=== PATIENT | female | born 1995 | race African-American/Black ===

== ENCOUNTER → 2024-05-02 | Outpatient (CLI) | payer OTHER ==
[2024-05-02 15:43] LABS: HEMATOCRIT 33.6 % (36.0-47.0); HEMOGLOBIN 10.7 g/dl (12.0-15.5); MEAN CORPUSCULAR HEMOGLOBIN 29.7 pg (27.0-33.0); MEAN CORPUSCULAR HGB CONC 31.8 g/dl (32.0-36.5); MEAN CORPUSCULAR VOLUME 93.3 fl (80.0-96.0); PLATELET COUNT, AUTOMATED 285 10^3/uL (150-450); WHITE BLOOD COUNT 8.5 10^3/uL (4.0-10.0)
[2024-05-02 16:00] LABS: GLUCOSE CHALLENGE TEST 1 HOUR 120 MG/DL (LESS THAN 140)
[2024-05-02 16:36] LABS: HIV 1&2 SCREEN NEGATIVE (NEGATIVE)
[2024-05-02 17:24] LABS: GC DNA AMPLIFICATION NEGATIVE (NEGATIVE)
[2024-05-02 17:39] LABS: HEPATITIS C VIRUS ABY INDEX 0.02 INDEX (<0.8)
== END ==
LOC: M PLALAB 12:01
PROVIDERS: ATTEND Nurse Practitioner Family
DX: Z34.03 Encounter for supervision of normal first pregnancy, third trimester (principal)

== ENCOUNTER → 2024-07-06 | Outpatient (REF) | payer OTHER | LOC: M SFHCWAGY 16:50 | PROVIDERS: ATTEND Nurse Practitioner Family | DX: Z34.03 Encounter for supervision of normal first pregnancy, third trimester (principal); Z3A.37 37 weeks gestation of pregnancy; Z88.0 Allergy status to penicillin; Z88.1 Allergy status to other antibiotic agents ==

== ENCOUNTER → 2024-07-06 | Outpatient (REF) | payer OTHER | LOC: M PLALAB 14:50 | PROVIDERS: ATTEND Nurse Practitioner Family | DX: Z53.9 Procedure and treatment not carried out, unspecified reason (principal); Z34.03 Encounter for supervision of normal first pregnancy, third trimester; Z3A.37 37 weeks gestation of pregnancy; Z88.0 Allergy status to penicillin; Z88.1 Allergy status to other antibiotic agents ==

== ENCOUNTER 2024-07-28 19:48 | Outpatient (CLI) | payer OTHER ==
[~2024-07-28] VITALS: Ht 182.9 cm; Wt 110.7 kg
[2024-07-28 21:03] VITALS: BP 117/72
[2024-07-28 22:21] VITALS: BP 100/56
[2024-07-29] MEDS ORDERED: ACET-907 PO ×2 (14:50)
== END 2024-07-28 23:38 | disposition home or self-care (01) ==
LOC: M LDO 19:48
PROVIDERS: ATTEND Obstetrics & Gynecology
DX: O47.1 False labor at or after 37 completed weeks of gestation (principal); O98.513 Other viral diseases complicating pregnancy, third trimester; O99.820 Streptococcus B carrier state complicating pregnancy; U07.1 COVID-19; B95.1 Streptococcus, group B, as the cause of diseases classified elsewhere; Z3A.40 40 weeks gestation of pregnancy
CPT/HCPCS: 59025; G0463

== ENCOUNTER 2024-07-29 14:25 | Inpatient (IN) | payer OTHER ==
[~2024-07-29] VITALS: Ht 182.9 cm; Wt 110.0 kg
[2024-07-29] VITALS (19 sets, daily range): BP systolic 95–135; BP diastolic 47–83
[2024-07-29] MEDS ORDERED: HOME MED LIST COMPLETE! XX SCH (14:50)
[2024-07-29] MEDS ORDERED: ACET-907 PO ×2 (14:50)
[2024-07-29] MEDS ORDERED: NALOXONE INJ 0.4MG/1ML VIAL IV PRN (15:30)
[2024-07-29] MEDS ORDERED: ONDANSETRON 4MG 2ML VIAL IV PRN (15:30)
[2024-07-29] MEDS ORDERED: diphenhydrAMINE 50MG/ML VIAL IV PRN (15:30)
[2024-07-29] MEDS ORDERED: EPIDURAL/PCA KEYS XX PRN (15:30)
[2024-07-29] MEDS: LR 500 ML IV PRN (16:04)
[2024-07-29] MEDS ORDERED: CARBOPROST TROMETHAMINE 250 MCG/ML AMP IM PRN (16:10)
[2024-07-29] MEDS ORDERED: LR 1,000 ML IV SCH (16:10)
[2024-07-29] MEDS ORDERED: METHYLERGONOVINE MALEATE 0.2MG/ML 1ML VIAL IM PRN (16:10)
[2024-07-29] MEDS ORDERED: LIDOCAINE 1% MDV 20ML VIAL INFIL PRN (16:10)
[2024-07-29] MEDS ORDERED: TRANEXAMIC ACID INJection 1,000 MG in NS 100 ML IV PRN (16:10)
[2024-07-29 16:12] LABS: HEMATOCRIT 35.5 % (36.0-47.0); HEMOGLOBIN 11.3 g/dl (12.0-15.5); MEAN CORPUSCULAR HGB CONC 31.8 g/dl (32.0-36.5); MEAN CORPUSCULAR VOLUME 87.9 fl (80.0-96.0); PLATELET COUNT, AUTOMATED 323 10^3/uL (150-450); RED BLOOD COUNT 4.04 10^6/uL (4.00-5.40)
[2024-07-29] MEDS: VANCOMYCIN HCL 1,000 MG, VIAL MATE ADAPTER 1 EACH in NS 250 ML IV SCH (16:31)
[2024-07-29] MEDS: FENTANYL/ROPIVACAINE/NACL BAG 100 ML EPIDURAL SCH (17:04)
[2024-07-29] MEDS: LACTATED RINGER'S 1000 ML IV STA (17:04)
[2024-07-29 17:15] LABS: HIV 1&2 SCREEN NEGATIVE (NEGATIVE)
[2024-07-29 17:22] LABS: HEPATITIS C VIRUS ABY INDEX 0.12 INDEX (<0.8)
[2024-07-29] MEDS: ePHEDrine SULFATE 25 MG/5 ML(5MG/ML) SYRINGE IVP PRN (17:25)
[2024-07-29] MEDS: OXYTOCIN DRIP 30 UNITS in IV 1 EA IV SCH (23:49)
[2024-07-30] MEDS: OXYTOCIN DRIP 30 UNITS in IV 1 EA IV PRN (03:59)
[2024-07-30] MEDS ORDERED: LR 1,000 ML IV SCH (04:20)
[2024-07-30] MEDS ORDERED: IBUPROFEN 600MG TAB PO PRN (04:20)
[2024-07-30] MEDS ORDERED: DIBUCAINE 1% OINTMENT 30GM TOP PRN (04:20)
[2024-07-30] MEDS ORDERED: DOCUSATE SODIUM 100MG CAPSULE PO PRN (04:20)
[2024-07-30] MEDS ORDERED: ONDANSETRON 4MG 2ML VIAL IV PRN (04:20)
[2024-07-30] MEDS ORDERED: CALCIUM CARBONATE 500 MG CHEW U/D PO PRN (04:20)
[2024-07-30] MEDS ORDERED: ACETAMINOPHEN 325 MG TAB PO PRN (04:20)
[2024-07-30] MEDS ORDERED: ANUSOL HC CREAM 30GM TOP PRN (04:20)
[2024-07-30] MEDS ORDERED: RHOGAM 300MCG (1500IU) INJ IM SCH (04:20)
[2024-07-30] MEDS ORDERED: METHYLERGONOVINE MALEATE 0.2 MG TAB PO PRN (04:20)
[2024-07-30] MEDS ORDERED: IBUPROFEN 800 MG TAB PO PRN (04:20)
[2024-07-30 06:20] VITALS: BP 142/88; O2SAT 98
[2024-07-30] MEDS: OXYTOCIN DRIP 30 UNITS in IV 1 EA IV SCH (07:07)
[2024-07-30] MEDS: PRENATAL VITAMINS CHEWABLE TABLET PO SCH (09:00)
[2024-07-30 18:00] VITALS: BP 137/90; O2SAT 100
[2024-07-30] MEDS: ACETAMINOPHEN 500 MG TAB PO PRN (19:56)
[2024-07-30] MEDS: SIMETHICONE 80MG CHEW TAB PO PRN (20:32)
[2024-07-31 06:04] VITALS: BP 127/81; O2SAT 99
[2024-08-01] MEDS ORDERED: MEASLES,MUMPS,RUBELLA VACCINE INJ (MMR-II) SC.IMMUN ONE (09:00)
== END 2024-07-31 15:55 | disposition home or self-care (01) | DRG 807 ==
LOC: M LDO 14:25 → M LDI 15:08 → M OBS 07-30 06:00
PROVIDERS: ADMIT Obstetrics & Gynecology; ATTEND Obstetrics & Gynecology
PROC: 10907ZC Drainage of Amniotic Fluid, Therapeutic from Products of Conception, Via Natural or Artificial Opening (ICD-10-PCS; 2024-07-29)
PROC: 10E0XZZ Delivery of Products of Conception, External Approach (ICD-10-PCS; principal; 2024-07-30)
PROC: 0KQM0ZZ Repair Perineum Muscle, Open Approach (ICD-10-PCS; 2024-07-30)
DX: O70.1 Second degree perineal laceration during delivery (principal); Z37.0 Single live birth; Z3A.40 40 weeks gestation of pregnancy; O99.824 Streptococcus B carrier state complicating childbirth

== ENCOUNTER 2024-08-05 09:33 | Emergency (ER) | payer OTHER ==
[~2024-08-05] VITALS: Ht 182.9 cm; Wt 104.1 kg
[~2024-08-05 09:33] MED LIST: ACET-907 PO
[2024-08-05] MEDS ORDERED: NITR100C2 (09:46)
[2024-08-05 10:25] LABS: KETONE, URINE AUTO RFX NEGATIVE (NEGATIVE); LEUKOCYTE ESTERASE UR AUTO RFX 1+ (NEGATIVE); MUCUS, URINE RFX SMALL (NEGATIVE); NITRITE, URINE AUTO RFX NEGATIVE (NEGATIVE); RBC, URINE AUTO RFX 74 /HPF (0-3); SQUAM EPITHELIAL CELL UR AURFX 5 /HPF (0-6); WBC, URINE AUTO RFX 130 /HPF (0-3)
[2024-08-05 11:41] LABS: URINE PREG TEST POSITIVE (NEGATIVE)
[2024-08-05 13:02] VITALS: BP 150/87; TEMP 97.3; O2SAT 98
== END 2024-08-05 13:04 | disposition home or self-care (01) ==
LOC: M ED 09:33
DX: N39.0 Urinary tract infection, site not specified (principal); R30.0 Dysuria; Z88.0 Allergy status to penicillin; Z88.1 Allergy status to other antibiotic agents; Z79.1 Long term (current) use of non-steroidal anti-inflammatories (NSAID); Z79.2 Long term (current) use of antibiotics

== ENCOUNTER 2024-08-07 21:47 | Observation (INO) | payer OTHER ==
[~2024-08-07] VITALS: Ht 182.9 cm; Wt 99.9 kg
[~2024-08-07 21:47] MED LIST changes: +NITR100C2
[2024-08-07] MEDS ORDERED: CEPHALEXIN 500 MG CAP PO ONE (22:20)
[2024-08-07] MEDS: PHENAZOPYRIDINE 100 MG TAB PO ONE (23:39)
[2024-08-07 23:46] LABS: BASO % 0.4 % (0.0-1.0); EOS # 0.2 10^3/uL (0.0-0.5); EOS % 2.4 % (0.0-3.0); HEMATOCRIT 36.2 % (36.0-47.0); HEMOGLOBIN 11.2 g/dl (12.0-15.5); LYMPH # 2.3 10^3/uL (1.5-5.0); LYMPH % 28.9 % (24.0-44.0); MEAN CORPUSCULAR HEMOGLOBIN 27.6 pg (27.0-33.0); MEAN CORPUSCULAR HGB CONC 30.9 g/dl (32.0-36.5); MEAN CORPUSCULAR VOLUME 89.2 fl (80.0-96.0); MONO # 0.6 10^3/uL (0.0-0.8); MONO % 7.9 % (2.0-8.0); NEUTROPHILS # 4.7 10^3/uL (1.5-8.5); NEUTROPHILS % 59.6 % (36.0-66.0); PLATELET COUNT, AUTOMATED 551 10^3/uL (150-450); RED BLOOD COUNT 4.06 10^6/uL (4.00-5.40); WHITE BLOOD COUNT 7.9 10^3/uL (4.0-10.0)
[2024-08-07 23:50] LABS: APPEARANCE, URINE HAZY (CLEAR); BACTERIA, URINE AUTO NEGATIVE (NEGATIVE); BILIRUBIN, URINE AUTO NEGATIVE (NEGATIVE); BLOOD, URINE BLOOD 2+ (NEGATIVE); COLOR, URINE YELLOW (YELLOW); GLUCOSE, URINE (UA) AUTO 1+ mg/dL (NEGATIVE); KETONE, URINE AUTO NEGATIVE (NEGATIVE); LEUKOCYTE ESTERASE, URINE AUTO NEGATIVE (NEGATIVE); MUCUS, URINE SMALL (NEGATIVE); NITRITE, URINE AUTO NEGATIVE (NEGATIVE); PROTEIN, URINE AUTO 3+ mg/dL (NEGATIVE); RBC, URINE AUTO TNTC /HPF (0-3); SPECIFIC GRAVITY URINE AUTO 1.026 (1.002-1.035); SQUAMOUS EPITHELIAL CELL UR AU 1 /HPF (0-6); UROBILINOGEN, URINE AUTO 0.2 mg/dL (0.0-2.0); WBC, URINE AUTO 3 /HPF (0-3)
[2024-08-08 00:12] LABS: ALBUMIN 2.8 G/DL (3.2-5.2); ALKALINE PHOSPHATASE 145 U/L (35-104); ALT/SGPT 24 U/L (7.0-40); AST/SGOT 26 U/L (<34); BILIRUBIN,TOTAL 0.3 MG/DL (0.3-1.2); BLOOD UREA NITROGEN 12 MG/DL (9-23); CALCIUM LEVEL 9.1 MG/DL (8.5-10.1); CARBON DIOXIDE LEVEL 26 MMOL/L (20-31); CHLORIDE LEVEL 106 MMOL/L (98-107); CREATININE FOR GFR 0.75 MG/DL (0.55-1.30); GLOMERULAR FILTRATION RATE > 60.0 (>60); GLUCOSE, FASTING 87 MG/DL (60-100); POTASSIUM SERUM 4.8 MMOL/L (3.5-5.1); SODIUM LEVEL 140 MMOL/L (136-145); TOTAL PROTEIN 7.1 G/DL (5.7-8.2)
[2024-08-08] MEDS: PERCOCET 5MG/325MG TAB PO ONE (00:52)
[2024-08-08] MEDS: ceFAZolin SOD 2 GM in IV 1 EA IV SCH ×2 (00:53→16:19)
[2024-08-08] MEDS: KETOROLAC 30 MG/ML 1ML VIAL IV ONE (00:53)
[2024-08-08] MEDS: LR 1,000 ML IV ONE (04:40)
[2024-08-08] MEDS ORDERED: PERCOCET 5MG/325MG TAB PO PRN (06:00)
[2024-08-08] MEDS: KETOROLAC 30 MG/ML 1ML VIAL IV SCH (06:55)
[2024-08-08 08:00] VITALS: BP 126/81; TEMP 97.9; O2SAT 99
[2024-08-08] MEDS: PHENAZOPYRIDINE 100 MG TAB PO SCH (09:43)
[2024-08-08 12:30] VITALS: BP 131/77; TEMP 97; O2SAT 99
[2024-08-08] MEDS ORDERED: PHEN1TAB73 PO (15:39)
[2024-08-08] MEDS ORDERED: CEPH500C PO (15:39)
[2024-08-08] MEDS: LACTATED RINGER'S 1000 ML IV STA (15:49)
[2024-08-08 16:00] VITALS: BP 121/67; TEMP 98.4; O2SAT 97
== END 2024-08-08 18:45 | disposition home or self-care (01) ==
LOC: M LDO 21:47 → M PED 21:48
PROVIDERS: ADMIT Specialist; ATTEND Specialist
DX: N30.01 Acute cystitis with hematuria (principal); Z88.0 Allergy status to penicillin
CPT/HCPCS: 74176; 80053; 81001; 85025; 87086; 96365; 96366; 96375; 96376; J0690; J1885

== ENCOUNTER → 2024-08-21 | Outpatient (REF) | payer OTHER ==
[~2024-08-21] MED LIST changes: +CEPH500C PO; +PHEN1TAB73 PO
== END ==
LOC: M SFHCWAGY 14:59
PROVIDERS: ATTEND Advanced Practice Midwife
DX: R30.9 Painful micturition, unspecified (principal)